=== PATIENT | male | born 1980 | race African-American/Black ===

== ENCOUNTER → 2019-10-28 | Day surgery (SDC) | payer OTHER | END | disposition home or self-care (01) | LOC: JRADIR 10:50 | PROVIDERS: ATTEND Orthopaedic Surgery Sports Medicine | PROC: BQ00YZZ Plain Radiography of Right Hip using Other Contrast (ICD-10-PCS; principal; 2019-10-28) | DX: M25.551 Pain in right hip (principal) | CPT/HCPCS: 27093; 73525-TC-FY; 76000-TC-FY ==

== ENCOUNTER 2021-10-15 04:37 | Day surgery (SDC) | payer OTHER ==
[2021-10-14 13:09] VITALS: BMI 22.8
[2021-10-15] MEDS ORDERED: BUPIVACAINE HCL/PF 0.5% (5 MG/ML) 30 ML VIAL IJ ONE (13:32)
[2021-10-15 16:51] VITALS: BP 121/86; PULSE 57; TEMP 97.8
== END 2021-10-15 14:05 | disposition home or self-care (01) ==
LOC: JASU-SURG 04:37
PROVIDERS: ATTEND Pain Medicine Pain Medicine
PROC: 3E0T33Z Introduction of Anti-inflammatory into Peripheral Nerves and Plexi, Percutaneous Approach (ICD-10-PCS; 2021-10-15)
PROC: 3E0T3BZ Introduction of Anesthetic Agent into Peripheral Nerves and Plexi, Percutaneous Approach (ICD-10-PCS; principal; 2021-10-15 11:45)
DX: M47.812 Spondylosis without myelopathy or radiculopathy, cervical region (principal)
CPT/HCPCS: 76000-TC-FY

== ENCOUNTER 2022-04-22 04:36 | Day surgery (SDC) | payer MEDICARE, OTHER ==
[2022-04-18 11:05] VITALS: BMI 28.3
[2022-04-22] MEDS ORDERED: DEXAMETHASONE SOD PHOSPHATE 4 MG/1 ML VIAL ONE (07:16)
[2022-04-22] MEDS ORDERED: DEXAMETHASONE SOD PHOSPHATE 10 MG/1 ML VIAL ONE (07:16)
[2022-04-22] MEDS ORDERED: LIDOCAINE HCL/PF 1% SDV 5ML VIAL ONE (07:16)
[2022-04-22] MEDS ORDERED: LIDOCAINE 1% P/F 10 MG/ML VIAL PNB ONE (13:28)
[2022-04-22] MEDS ORDERED: DEXAMETHASONE SOD PHOSPHATE 10 MG/1 ML VIAL IVPUSH ONE (13:31)
[2022-04-22] MEDS ORDERED: IOHEXOL 180 MG/1 ML ML IJ ONE (13:32)
[2022-04-22 13:49] VITALS: BP 120/81; PULSE 81; RESP 20; TEMP 98
== END 2022-04-22 14:15 | disposition home or self-care (01) ==
LOC: JASU-SURG 04:36
PROVIDERS: ATTEND Pain Medicine Pain Medicine
PROC: 3E0R33Z Introduction of Anti-inflammatory into Spinal Canal, Percutaneous Approach (ICD-10-PCS; principal; 2022-04-22 14:00)
DX: M54.16 Radiculopathy, lumbar region (principal)
CPT/HCPCS: 76000-TC-FY; J1100